=== PATIENT | male | born 1990 | race African-American/Black ===

== ENCOUNTER 2024-10-08 10:11 | Emergency (ER) | payer SELFPAY ==
[~2024-10-08] VITALS: Ht 182.9 cm; Wt 77.0 kg
[2024-10-08 10:18] VITALS: O2SAT 100
[2024-10-08 10:56] LABS: BASOPHILS % 0.6 % (0.0-2.0); EOSINOPHILS % 1.8 % (0.0-5.0); HEMATOCRIT. 29.7 % (42.0-52.0); HEMOGLOBIN. 9.5 g/dL (14.0-18.0); LYMPHOCYTES % 24.9 % (20.0-50.0); MEAN CORPUSCULAR HEMOGLOBIN 21.2 pg (28.0-32.0); MEAN CORPUSCULAR HGB CONC 31.8 g/dL (31.0-37.0); MEAN CORPUSCULAR VOLUME 66.7 fL (80.0-94.0); MEAN PLATELET VOLUME 7.1 fl (7.4-10.4); MONOCYTES % 4.7 % (2.0-8.0); PLATELET 363 x1000/uL (130-400); RED BLOOD CELL COUNT 4.46 mill/uL (4.7-6.1); RED CELL DISTRIBUTION WIDTH 18.8 % (11.6-14.6); WHITE BLOOD COUNT 7.1 x1000/uL (4.5-11.0)
[2024-10-08 10:57] LABS: ADD RBC MORPHOLOGY YES; DIFFERENTIAL COMMENT 1
[2024-10-08 11:05] LABS: CHLORIDE 105 mEq/L (98-107); POTASSIUM 3.2 mEq/L (3.5-5.1); SODIUM 138 mEq/L (136-145)
[2024-10-08 11:06] LABS: CALCIUM 8.7 mg/dL (8.7-10.4); CARBON DIOXIDE 26 mEq/L (21-32)
[2024-10-08 11:11] LABS: CREATININE 0.7 mg/dL (0.6-1.3); GLUCOSE 69 mg/dL (70-105); UREA NITROGEN BLOOD 10 mg/dL (9-23)
[2024-10-08 11:12] LABS: ETHANOL BLOOD 43 mg/dL (<10)
[2024-10-08 11:21] LABS: ANISOCYTOSIS 2+; MICROCYTOSIS 3+; PLATELET ESTIMATE NORMAL
[2024-10-08 15:00] VITALS: BP 127/81; PULSE 59; RESP 16; TEMP 36.4; O2SAT 100
== END 2024-10-08 15:56 | disposition left against medical advice (07) ==
LOC: ER 10:11
DX: T40.2X1A Poisoning by other opioids, accidental (unintentional), initial encounter (principal); E11.9 Type 2 diabetes mellitus without complications; Y92.9 Unspecified place or not applicable
CPT/HCPCS: 36415; 80048; 80320; 85025; 99283; G0480